=== PATIENT | male | born 1970 | race Caucasian/White ===

== ENCOUNTER 2020-02-11 00:38 | Inpatient (IN) | payer MEDICAID ==
[~2020-02-11] VITALS: Ht 172.7 cm; Wt 89.8 kg
[2020-02-11] MEDS ORDERED: DEXTROSE 50%-WATER 50 ML DISP.SYRIN IV PRN (01:00)
[2020-02-11] MEDS ORDERED: Z GUARD REMEDY 2 OZ OINT TP PRN (01:00)
--- NOTE | 2020-02-11 01:10 | NUR ---
Received via [facility] from [facility] with a wound to the left lateral foot. wound red/pink/black areas. Photo taken and placed i the chart. He denies pain. sensation to the foot present. elevated on a pillow. Fever 101.8 tyl given as ordered. Phone w/o professional services manager with patient. Patient is alert and orientated able to walk from [facility] to the bed
[2020-02-11 01:55] VITALS: BP 146/75
[2020-02-11 01:58] LABS: CALCIUM, SERUM 7.5 mg/dL (8.5-10.1); CREATININE 2.9 mg/dL (0.6-1.3); POTASSIUM 4.5 mmol/L (3.5-5.1)
[2020-02-11 02:08] LABS: BASOPHILS # (AUTO) 0.1 /CMM (0.0-0.2); BASOPHILS % (AUTO) 0.8 % (0.0-2.0); EOSINOPHILS % (AUTO) 0.1 % (0.0-6.0); HEMATOCRIT 24 % (39-51); HEMOGLOBIN 7.9 g/dL (13.5-17.5); LYMPHOCYTES # (AUTO) 1.4 /CMM (0.8-4.8); LYMPHOCYTES % (AUTO) 9.6 % (20.0-44.0); MEAN CORPUSCULAR HGB CONC 33 g/dl (31.0-36.0); MEAN CORPUSCULAR VOLUME 80 fL (80-96); MONOCYTES # (AUTO) 0.9 /CMM (0.1-1.30); MONOCYTES % (AUTO) 6.6 % (2.0-12.0); NEUTROPHILS # (AUTO) 11.8 /CMM (1.8-8.9); NEUTROPHILS % (AUTO) 82.9 % (43.0-81.0); PLATELET COUNT (AUTO) 208 /CMM (150-450); RED BLOOD CELL COUNT(AUTO) 2.97 MIL/uL (4.5-6.0); WHITE BLOOD COUNT (AUTO) 14.2 K/uL (4.3-11.0)
[2020-02-11] MEDS ORDERED: VANCOMYCIN 1.75 GM in IV D5W 500 ML IV ONE (02:30)
[2020-02-11] MEDS: IV NS 0.9% 1,000 ML IV PRN ×2 (02:37→18:22)
[2020-02-11] MEDS ORDERED: VANCOMYCIN 1 GM VIAL ONE (02:49)
[2020-02-11] MEDS ORDERED: ACETAMINOPHEN 325 MG TABLET ONE (02:50)
[2020-02-11] MEDS: ACETAMINOPHEN 325 MG TABLET PO PRN ×2 (03:03→17:20)
[2020-02-11] MEDS ORDERED: INSULIN REGULAR, HUMAN 100 UNIT/ML 3 ML VIAL ONE (03:07)
[2020-02-11] MEDS: BLOOD SUGAR DIAGNOSTIC 1 EACH STRIP VI SCH ×4 (05:46→21:36)
[2020-02-11] MEDS: INSULIN REGULAR, HUMAN 100 UNIT/ML 3 ML VIAL SQ PRN ×3 (06:00→17:22)
--- NOTE | 2020-02-11 06:16 | NUR ---
ENDING NOTES: MD HUNT TEXTED AND MADE AWARE THE BLOOD SUGAR 249 HE RETURNED WITH ORDER TO GIVE 15 UNITS REGULAR INSUL THIS AM 02/10 PATIENT DENIES PAIN LEFT FOOT Addendum: 02/11/20 at 0708 by YADIRA YBARRA RN ENDING NOTES: mD Hunt TEXTED AND MADE AWARE THE BLOOD SUGAR WAS 429 hE RETURNED WITH ORDERS TO GIVE 15 UNITS THIS 02/10 am ADMITTING FEVER 101.8 TYL GIVEN AND EFFECTIVE TEMP < TO 98.8 ORALLY. DOSE VANCO GIVEN ORDERED.
[2020-02-11] MEDS ORDERED: FEE PK DOSING 1 MIN EA MC ONE (07:12)
--- NOTE | 2020-02-11 07:43 | NUR ---
RN NOTES RECEIVED PATIENT IN BED RESTING COMFORTABLY IN MODERATE HIGH BACK REST, A/O X4, ABLE TO MAKE NEEDS KNOWN, ON RA, TOLERATING WELL, NO SIGNS OF DISTRESS NOTED AT THIS TIME, IV FLUIDS ON RAC #18, WITH NS RUNNING @75ML/HR, PATENT AND INTACT. SAFETY MEASURES IN PLACE, BED IN LOWEST LOCKED POSITION WITH SIDE RAILS UP X2, CALL LIGHT WITHIN REACH. WILL CONTINUE TO MONITOR.
[2020-02-11] MEDS ORDERED: CEPH500C2 PO (07:50)
[2020-02-11] MEDS ORDERED: METF-440 PO (07:51)
[2020-02-11 08:00] VITALS: BP 131/71
--- NOTE | 2020-02-11 10:12 | NUR ---
WOUND CARE CONSULT: PT PRESENTS WITH VERY SWOLLEN, DISCOLORED LEFT FOOT WITH PEELING SKIN. RECOMMEND DPM CONSULT. DR JAMESON NOTIFIED OF CONSULT REQUEST. PT IS CONTINENT AND INDEPENDENT WITH BED MOBILITY. WILL SEE PRN. CEJA IN AGREEMENT WITH PLAN OF CARE. Addendum: 02/11/20 at 1013 by JANAK LEY WNDNU Amended: Links added.
[2020-02-11 16:00] VITALS: BP 159/90
--- NOTE | 2020-02-11 18:36 | NUR ---
RN NOTES PATIENT IN BED RESTING COMFORTABLY IN MODERATE HIGH BACK REST, A/O X4, ABLE TO MAKE NEEDS KNOWN, ON RA, TOLERATING WELL, NO SIGNS OF DISTRESS NOTED THROUGHOUT THE SHIFT, IV FLUIDS ON RAC #18, WITH NS RUNNING @75ML/HR, PATENT AND INTACT. SAFETY MEASURES IN PLACE, BED IN LOWEST LOCKED POSITION WITH SIDE RAILS UP X2, CALL LIGHT WITHIN REACH. WILL ENDORSE TO PHARMACY ANALYST NURSE FOR TROY.
--- NOTE | 2020-02-11 19:50 | NUR ---
MS RN NOTE: PATIENT RESTING IN BED, NO ACUTE DISTRESS NOTED. BREATHING EVEN AND UNLABORED, NO SOB NOTED. NO S/S OF HYPER/HYPOGLYCEMIA NOTED. BED LOCKED AND IN LOWEST POSITION, CALL LIGHT IN REACH. WILL CONTINUE TO MONITOR.
[2020-02-11 20:31] VITALS: BP 129/66
[2020-02-11] MEDS: *INSULIN REGULAR(HUMULIN R)HUM 100 UNIT/ML VIAL SQ PRN (21:48)
--- NOTE | 2020-02-11 21:50 | NUR ---
MS RN NOTE: PATIENT BLOOD SUGAR LEVEL 235MG/DL, 4 UNITS OF INSULIN GIVEN PER SLIDING SCALE. NO S/S OF HYPERGLYCEMIA NOTED. WILL CONTINUE TO MONITOR.
[2020-02-11] MEDS ORDERED: VANCOMYCIN 1 GM in IV D5W 250 ML IV SCH (23:00)
[2020-02-12] MEDS: ACETAMINOPHEN 325 MG TABLET PO PRN (04:53)
--- NOTE | 2020-02-12 06:38 | NUR ---
MS RN NOTE: PATIENT RESTING IN BED, NO ACUTE DISTRESS NOTED. BREATHING EVEN AND UNLABORED, NO SOB NOTED. PATIENT BLOOD SUGAR LEVEL 108MG/DL, NO INSULIN NEEDED PER SLIDING SCALE. NO S/S OF HYPER/HYPOGLYCEMIA NOTED. DRESSING TO LEFT FOOT CLEAN AND DRY. BED LOCKED AND IN LOWEST POSITION, CALL LIGHT IN REACH. WILL ENDORSE TO DAY NURSE TO CONTINUE WITH PLAN OF CARE.
[2020-02-12] MEDS: BLOOD SUGAR DIAGNOSTIC 1 EACH STRIP VI SCH ×4 (06:43→21:50)
[2020-02-12 06:57] LABS: BASOPHILS % (AUTO) 0.2 % (0.0-2.0); EOSINOPHILS % (AUTO) 0.2 % (0.0-6.0); HEMATOCRIT 24 % (39-51); HEMOGLOBIN 8.2 g/dL (13.5-17.5); LYMPHOCYTES # (AUTO) 1.2 /CMM (0.8-4.8); LYMPHOCYTES % (AUTO) 9.5 % (20.0-44.0); MEAN CORPUSCULAR HGB CONC 34 g/dl (31.0-36.0); MEAN CORPUSCULAR VOLUME 79 fL (80-96); MONOCYTES # (AUTO) 0.9 /CMM (0.1-1.30); MONOCYTES % (AUTO) 7.4 % (2.0-12.0); NEUTROPHILS # (AUTO) 10.1 /CMM (1.8-8.9); NEUTROPHILS % (AUTO) 82.7 % (43.0-81.0); PLATELET COUNT (AUTO) 261 /CMM (150-450); WHITE BLOOD COUNT (AUTO) 12.2 K/uL (4.3-11.0)
[2020-02-12 07:03] LABS: ALBUMIN 1.7 g/dL (3.4-5.0); BILIRUBIN,TOTAL 0.3 mg/dL (0.2-1.0); MAGNESIUM 1.9 mg/dL (1.8-2.4); PHOSPHORUS 3.4 mg/dL (2.5-4.9); POTASSIUM 4.2 mmol/L (3.5-5.1)
[2020-02-12 07:06] LABS: THYROID STIMULATING HORMONE 2.277 uIU/mL (0.358-3.74); URIC ACID 7.6 mg/dL (2.6-7.2)
[2020-02-12 08:00] VITALS: BP 121/69
[2020-02-12] MEDS: MAGNESIUM HYDROXIDE 30 ML UDC PO PRN (11:08)
--- NOTE | 2020-02-12 11:09 | NUR ---
rn notes ADMINISTERED MILK OF MAGNESIA FOR CONSTIPATION PER PATIENT REQUEST.
[2020-02-12] MEDS: INSULIN REGULAR, HUMAN 100 UNIT/ML 3 ML VIAL SQ PRN (11:42)
--- NOTE | 2020-02-12 12:19 | NUR ---
RN NOTES WOUND MD Dr GARCIA WITH THE PATIENT AT THIS TIME, WOUND CULTURE TAKEN BY , CALLED LAB FOR METAL BUGGY OPERATOR.
[2020-02-12 13:42] LABS: CREATININE, URINE 188.7 MG/DL (30.0-125.0)
[2020-02-12] MEDS: HYDROCODONE/APAP 5/325MG 1 EACH TABLET PO PRN (14:16)
[2020-02-12] MEDS: ONDANSETRON HCL/PF 4 MG/2 ML VIAL IVP PRN (14:16)
--- NOTE | 2020-02-12 14:16 | NUR ---
RN NOTES ADMINISTERED ZOFRAN 4 MG/ML IV PUSH FOR NAUSEA, AND NARCO 5/325 MG PO PRN FOR LEFT FOOT PAIN 6/10 PER PATIENT REQUEST. V/S WNL, CONTINUED MONITORING.
[2020-02-12 15:03] LABS: APPEARANCE,URINE SL CLOUDY (CLEAR); BILIRUBIN,URINE NEGATIVE (NEGATIVE); BLOOD, URINE MODERATE Ery/uL (NEGATIVE); COLOR,URINE YELLOW (YELLOW); KETONES,URINE NEGATIVE (NEGATIVE); LEUKOCYTE ESTERASE ,URINE NEGATIVE (NEGATIVE); NITRITE, URINE NEGATIVE (NEGATIVE); PH,URINE 5.5 (5.0-8.0); PROTEIN,URINE 100 mg/dl (NEGATIVE); UGLUCOSE >=1000 mg/dL (NEGATIVE); UROBILINOGEN,URINE 0.2 EU/dL (0.2)
[2020-02-12 15:09] LABS: BACTERIA,URINE 1+ /HPF (None Seen); COARSE GRANULAR CASTS,URINE Few /LPF (None Seen); RBC,URINE 21-50 /HPF (0-2); SQUAMOUS EPITHELIAL CELL,UR 0-2 /HPF (None Seen); WBC,URINE 0-2 /HPF (0-3)
[2020-02-12 15:10] LABS: EOSINOPHIL,URINE None Seen
--- NOTE | 2020-02-12 18:00 | NUR ---
RN NOTES AS=837 MG/DL NO COVERAGE GIVEN BECAUSE PATIENT REFUSED TO EAT DINNER. V/S STABLE, MEDICATION WERE ADMINISTERED FOR PAIN, NAUSEA, AND CONSTIPATION EFFECTIVE. PATIENT RESTING IN THE BED. CALL LIGHT WITHIN TO REACH. ENDORSED ONCOMING NURSE FOLLOW PLAN OF CARE.
[2020-02-12 20:12] VITALS: BP 159/89
[2020-02-12] MEDS: *INSULIN REGULAR(HUMULIN R)HUM 100 UNIT/ML VIAL SQ PRN (22:04)
[2020-02-12] MEDS: VANCOMYCIN 1 GM in IV D5W 250 ML IV SCH (22:09)
[2020-02-13] MEDS: BLOOD SUGAR DIAGNOSTIC 1 EACH STRIP VI SCH ×4 (06:26→21:30)
[2020-02-13 06:27] LABS: BASOPHILS % (AUTO) 0.3 % (0.0-2.0); EOSINOPHILS % (AUTO) 0.3 % (0.0-6.0); HEMATOCRIT 25 % (39-51); HEMOGLOBIN 8.3 g/dL (13.5-17.5); LYMPHOCYTES # (AUTO) 1.4 /CMM (0.8-4.8); LYMPHOCYTES % (AUTO) 10.7 % (20.0-44.0); MEAN CORPUSCULAR HGB CONC 33 g/dl (31.0-36.0); MEAN CORPUSCULAR VOLUME 80 fL (80-96); MONOCYTES # (AUTO) 0.8 /CMM (0.1-1.30); MONOCYTES % (AUTO) 6.4 % (2.0-12.0); NEUTROPHILS # (AUTO) 10.8 /CMM (1.8-8.9); NEUTROPHILS % (AUTO) 82.3 % (43.0-81.0); PLATELET COUNT (AUTO) 302 /CMM (150-450); RED BLOOD CELL COUNT(AUTO) 3.12 MIL/uL (4.5-6.0); WHITE BLOOD COUNT (AUTO) 13.1 K/uL (4.3-11.0)
[2020-02-13] MEDS: INSULIN REGULAR, HUMAN 100 UNIT/ML 3 ML VIAL SQ PRN ×3 (06:28→17:46)
--- NOTE | 2020-02-13 06:40 | NUR ---
MS RN NOTES AWAKE & RESPONSIVE. NOT IN ANY DISTRESS. NO SOB NOTED. DENIES ANY PAIN OR DISCOMFORT AT THIS TIME. MONITORED ACCORDINGLY. CALL LIGHT WITHIN REACH. BED IN LOWEST POSITION. SR UP X 2 FOR SAFETY. WILL ENDORSE TO NEXT SHIFT.
[2020-02-13 06:55] LABS: CALCIUM, SERUM 8.3 mg/dL (8.5-10.1); CREATININE 3.1 mg/dL (0.6-1.3); POTASSIUM 4.6 mmol/L (3.5-5.1)
[2020-02-13 08:00] VITALS: BP 168/97
--- NOTE | 2020-02-13 08:00 | NUR ---
MS RN AM NOTE: PATIENT RESTING IN BED, NO ACUTE DISTRESS NOTED. BREATHING EVEN AND UNLABORED, NO SOB NOTED. NO S/S OF HYPER/HYPOGLYCEMIA NOTED. BED LOCKED AND IN LOWEST POSITION, CALL LIGHT WITHIN REACH. WILL CONTINUE TO MONITOR.
[2020-02-13] MEDS: MAG HYDROX/AL HYDROX/SIMETH 30 ML UDC PO PRN (11:29)
[2020-02-13 14:25] LABS: *SPE A/G RATIO 0.4 (0.7-1.7); *SPE ALBUMIN 1.8 g/dL (2.9-4.4); *SPE ALPHA-1-GLOBULIN 0.5 g/dL (0.0-0.4); *SPE ALPHA-2-GLOBULIN 1.2 g/dL (0.4-1.0); *SPE BETA GLOBULIN 1.2 g/dL (0.7-1.3); *SPE GLOBULIN, TOTAL 4.1 g/dL (2.2-3.9); *SPE M-SPIKE Not Observed g/dL (Not Observed); *SPEGAMMA GLOBULIN 1.2 g/dL (0.4-1.8)
[2020-02-13 16:00] VITALS: BP 148/81
--- NOTE | 2020-02-13 17:09 | NUR ---
SEEN BY DR GOSS AND SPOKE TO THE PT STATING THAT PT NEEDS TO HAVE SX BY MONDAY AND WILL DISCUSS WITH THE HOSPITALIST ABOUT IT.
[2020-02-13 20:17] VITALS: BP 139/70
[2020-02-13] MEDS: *INSULIN REGULAR(HUMULIN R)HUM 100 UNIT/ML VIAL SQ PRN (22:05)
[2020-02-13] MEDS: VANCOMYCIN 1 GM in IV D5W 250 ML IV SCH (22:11)
[2020-02-14] MEDS: ACETAMINOPHEN 325 MG TABLET PO PRN ×2 (00:23→10:15)
[2020-02-14] MEDS: MAG HYDROX/AL HYDROX/SIMETH 30 ML UDC PO PRN ×2 (00:46→11:04)
[2020-02-14] MEDS: ZOLPIDEM TARTRATE 5 MG TABLET PO PRN (00:50)
[2020-02-14 02:11] LABS: PTH, INTACT 51 pg/mL (15-65)
--- NOTE | 2020-02-14 06:00 | NUR ---
MS RN NOTES BS CHECKED 196. PT REFUSED TO HAVE 3 UNITS OF REGULAR INSULIN. EXPLAINED TO PT IMPORTANCE OF INSULIN IN HIS POC BUT PT STILL REFUSED. WILL CONTINUE TO MONITOR.
[2020-02-14] MEDS: BLOOD SUGAR DIAGNOSTIC 1 EACH STRIP VI SCH ×4 (06:43→22:01)
[2020-02-14 08:00] VITALS: BP_SYST 139; BP_SYST 149; BP_DIAS 64; BP_DIAS 88
--- NOTE | 2020-02-14 08:00 | NUR ---
MS RN OPENING NOTES Received Patient awake and resting in bed. A/O x 4, Irish speaking. VS stable with no acute distress. Breathing even and unlabored on room air with no respiratory distress. Denies pain. 18g PIV on LAC clean, intact, patent and flushing well with NS infusing at 75ml/hr. Safety precautions in place. Bed locked and set to lowest position with side rails x 2 up. All needs rendered at this time. Call light within reach. Will continue to monitor.
[2020-02-14 08:27] LABS: BASOPHILS % (AUTO) 0.5 % (0.0-2.0); EOSINOPHILS % (AUTO) 1.5 % (0.0-6.0); HEMATOCRIT 24 % (39-51); HEMOGLOBIN 7.8 g/dL (13.5-17.5); LYMPHOCYTES # (AUTO) 1.7 /CMM (0.8-4.8); LYMPHOCYTES % (AUTO) 17.8 % (20.0-44.0); MEAN CORPUSCULAR HGB CONC 33 g/dl (31.0-36.0); MEAN CORPUSCULAR VOLUME 81 fL (80-96); MONOCYTES # (AUTO) 0.8 /CMM (0.1-1.30); MONOCYTES % (AUTO) 8.1 % (2.0-12.0); NEUTROPHILS # (AUTO) 6.7 /CMM (1.8-8.9); NEUTROPHILS % (AUTO) 72.1 % (43.0-81.0); PLATELET COUNT (AUTO) 272 /CMM (150-450); RED BLOOD CELL COUNT(AUTO) 2.88 MIL/uL (4.5-6.0); WHITE BLOOD COUNT (AUTO) 9.3 K/uL (4.3-11.0)
[2020-02-14] MEDS: INSULIN REGULAR, HUMAN 100 UNIT/ML 3 ML VIAL SQ PRN (12:30)
[2020-02-14 12:39] LABS: ALBUMIN 1.5 g/dL (3.4-5.0); BILIRUBIN,TOTAL 0.2 mg/dL (0.2-1.0); CALCIUM, SERUM 8.1 mg/dL (8.5-10.1); CREATININE 2.8 mg/dL (0.6-1.3); MAGNESIUM 2.4 mg/dL (1.8-2.4); PHOSPHORUS 4.8 mg/dL (2.5-4.9); TOTAL PROTEIN, SERUM 6.8 g/dL (6.4-8.2)
[2020-02-14 16:00] VITALS: BP 147/88
--- NOTE | 2020-02-14 18:19 | NUR ---
MS RN CLOSING NOTES Patient awake and resting in bed. A/O x 4, Niuean speaking. VS stable with no acute distress. Breathing even and unlabored on room air with no respiratory distress. Denies pain. Patient AMA, awaiting order picker. Safety precautions in place. Bed locked and set to lowest position with side rails x 2 up. All needs rendered at this time. Call light within reach. Will endorse to oncoming shift.
[2020-02-14 19:30] VITALS: BP 155/99
[2020-02-14] MEDS: MAGNESIUM HYDROXIDE 30 ML UDC PO PRN (19:39)
--- NOTE | 2020-02-14 19:47 | NUR ---
MS RN NOTES PATIENT SITTING EDGE OF BED. ALERT AND ORIENTED X 4. BREATHING EVEN AND UNLABORED ON ROOM AIR. SHOWS NO SIGNS OF ACUTE RESPIRATORY DISTRESS, NO ACUTE PAIN. IV REMOVED, PT WILL BE LEAVING AMA AT 2029. SAFETY PRECAUTIONS IN PLACE. BED IN LOWEST POSITION, LOCKED, AND CALL LIGHT KEPT WITHIN REACH. WILL CONTINUE TO MONITOR.
[2020-02-14 20:12] VITALS: BP 155/99
--- NOTE | 2020-02-14 20:30 | NUR ---
MS RN NOTES PT NO LONGER LEAVING AMA. MADE AWARE. WILL CONTINUE TO MONITOR.
--- NOTE | 2020-02-14 22:00 | NUR ---
MS RN NOTES PATIENT REFUSED INSULIN. EDUCATED PT FOR REASON FOR MEDICATION. HE STATES THAT HE HASNT BEEN EATING MUCH. WILL CONTINUE TO MONITOR
[2020-02-14] MEDS: VANCOMYCIN 1 GM in IV D5W 250 ML IV SCH (23:19)
[2020-02-14] MEDS: IV NS 0.9% 1,000 ML IV PRN (23:26)
[2020-02-15] MEDS: BLOOD SUGAR DIAGNOSTIC 1 EACH STRIP VI SCH ×4 (06:33→21:31)
[2020-02-15] MEDS: INSULIN REGULAR, HUMAN 100 UNIT/ML 3 ML VIAL SQ PRN ×3 (06:34→16:59)
--- NOTE | 2020-02-15 06:40 | NUR ---
MS RN NOTES PATIENT IN BED. ALERT AND ORIENTED X 4. BREATHING EVEN AND UNLABORED ON ROOM AIR. SHOWS NO SIGNS OF ACUTE RESPIRATORY DISTRESS, NO ACUTE PAIN. IV 20G ON RAC 20G RUNNING NS AT 75ML/HR. SHOWS NO SIGNS OF INFILTRATION, NO REDNESS. ALL DUE MEDICATIONS GIVEN. SAFETY PRECAUTIONS IN PLACE. BED IN LOWEST POSITION, LOCKED, AND CALL LIGHT KEPT WITHIN REACH. WILL ENDORSE TO ONCOMING NURSE.
--- NOTE | 2020-02-15 07:35 | NUR ---
MS RN NOTES RECEIVED PT IN BED, AWAKE, A/OX4. PT TOLERATING RA, WITH NO ACUTE RESPIRATORY DISTRESS NOTED. PT DENIES ANY PAIN OR DISCOMFORT AT THIS TIME. PT DENIES ANY CONCERNS OR QUESTION WELL. IVF NS AT 75ML/HR TO RAC G20, INTACT AND OPERATIONAL. PT KEPT COMFORTABLE. CALL LIGHT KEPT WITHIN REACH. PT'S BED IN LOWEST, LOCKED POSITION WITH SR X3. WILL CONTINUE PLAN OF CARE.
[2020-02-15 08:00] VITALS: BP 151/84
[2020-02-15] MEDS: ACETAMINOPHEN 325 MG TABLET PO PRN (10:20)
[2020-02-15 10:23] LABS: BASOPHILS % (AUTO) 0.4 % (0.0-2.0); HEMATOCRIT 23 % (39-51); HEMOGLOBIN 7.5 g/dL (13.5-17.5); LYMPHOCYTES # (AUTO) 1.2 /CMM (0.8-4.8); LYMPHOCYTES % (AUTO) 14.1 % (20.0-44.0); MEAN CORPUSCULAR HGB CONC 33 g/dl (31.0-36.0); MEAN CORPUSCULAR VOLUME 81 fL (80-96); MONOCYTES # (AUTO) 0.6 /CMM (0.1-1.30); MONOCYTES % (AUTO) 7.5 % (2.0-12.0); NEUTROPHILS # (AUTO) 6.6 /CMM (1.8-8.9); PLATELET COUNT (AUTO) 327 /CMM (150-450); WHITE BLOOD COUNT (AUTO) 8.6 K/uL (4.3-11.0)
[2020-02-15 10:36] LABS: ALBUMIN 1.6 g/dL (3.4-5.0); BILIRUBIN,TOTAL 0.2 mg/dL (0.2-1.0); CALCIUM, SERUM 8.1 mg/dL (8.5-10.1); CREATININE 2.3 mg/dL (0.6-1.3); MAGNESIUM 2.5 mg/dL (1.8-2.4); PHOSPHORUS 4.7 mg/dL (2.5-4.9); POTASSIUM 4.7 mmol/L (3.5-5.1); TOTAL PROTEIN, SERUM 6.9 g/dL (6.4-8.2)
--- NOTE | 2020-02-15 14:30 | NUR ---
MS RN NOTES WOUND CARE PROVIDED. WILL CONTINUE TO MONITOR.
--- NOTE | 2020-02-15 18:39 | NUR ---
MS RN NOTES RECEIVED PT IN BED, AWAKE, A/OX4. PT TOLERATING RA, WITH NO ACUTE RESPIRATORY DISTRESS NOTED. PT DENIES ANY PAIN OR DISCOMFORT AT THIS TIME. IVF NS AT 75ML/HR TO RAC G20, INTACT AND OPERATIONAL. PT KEPT COMFORTABLE. ALL NEEDS AND CARE ATTENDED. CALL LIGHT KEPT WITHIN REACH. PT'S BED IN LOWEST, LOCKED POSITION WITH SR X3. WILL ENDORSE TO INCOMING NIGHT NURSE FOR TROY.
--- NOTE | 2020-02-15 19:32 | NUR ---
Received alert and orientated smiling. Made aware to call nurse if need to get OOB for safety reasons.
[2020-02-15 20:15] VITALS: BP 169/91
[2020-02-15 20:16] VITALS: BP 169/91
[2020-02-15] MEDS: *INSULIN REGULAR(HUMULIN R)HUM 100 UNIT/ML VIAL SQ PRN (21:35)
[2020-02-15] MEDS: ONDANSETRON HCL/PF 4 MG/2 ML VIAL IVP PRN (22:09)
[2020-02-15] MEDS: VANCOMYCIN 1 GM in IV D5W 250 ML IV SCH (22:28)
[2020-02-16] MEDS: HYDROCODONE/APAP 5/325MG 1 EACH TABLET PO PRN (03:38)
--- NOTE | 2020-02-16 05:24 | NUR ---
AN UNEVENTFUL NIGHT MEDICATED X1 WITH NORCO TAB 1 FOR LEFT FOOT PAIN AND IT WAS EFFECTIVE. REMAINS AFEBRIL. WHEN IN BED THE LEFT LEGS IS ELEVATED ON A PILLOW GAUZE WRAPPED DRESSING CDI PT IS COOPERATIVE AND IN GOOD SPIRITS
[2020-02-16] MEDS: BLOOD SUGAR DIAGNOSTIC 1 EACH STRIP VI SCH ×4 (06:38→22:15)
[2020-02-16] MEDS: INSULIN REGULAR, HUMAN 100 UNIT/ML 3 ML VIAL SQ PRN ×3 (06:41→16:40)
--- NOTE | 2020-02-16 07:36 | NUR ---
M/S RN OPENING NOTES RECEIVED PT ON BED A/OX4, RESPONSIVE TO ALL STIMULI. RESPIRATION EVEN AND NON LABORED WITH NO ACUTE RESPIRATORY DISTRESS, ON ROOM AIR TEMP. ABD SOFT AND NON DISTENDED WITH ACTIVE BOWEL SOUNDS, CONTINENT B&B, WITH BRP. SKIN WARM TO TOUCH AND DRY. DENIES PAIN AND DISCOMFORT. LEFT FOOT DRESSING INACT AND CLEAN, EXTREMITY OFFLOAD. IV SITE AT RIGHT AC #20 PATENT IN FLUSHING, SITE CLEAN WITH NO S/SX OF INFILTRATION, RUNNING NS @ 75 ML/HR. BED IN LOW LOCKED POSITION, SR X2 UP FOR SAFETY, NEAR IN NURSES STATION, CALL LIGHT WITHIN REACHED. WILL CONTINUE TO EVALUATE CARE.
[2020-02-16 08:00] VITALS: BP 126/69
[2020-02-16 08:13] LABS: BASOPHILS # (AUTO) 0.1 /CMM (0.0-0.2); BASOPHILS % (AUTO) 0.8 % (0.0-2.0); EOSINOPHILS % (AUTO) 1.4 % (0.0-6.0); HEMATOCRIT 22 % (39-51); HEMOGLOBIN 7.2 g/dL (13.5-17.5); LYMPHOCYTES # (AUTO) 1.4 /CMM (0.8-4.8); LYMPHOCYTES % (AUTO) 18.3 % (20.0-44.0); MEAN CORPUSCULAR HGB CONC 33 g/dl (31.0-36.0); MEAN CORPUSCULAR VOLUME 80 fL (80-96); MONOCYTES # (AUTO) 0.6 /CMM (0.1-1.30); NEUTROPHILS # (AUTO) 5.4 /CMM (1.8-8.9); NEUTROPHILS % (AUTO) 71.5 % (43.0-81.0); PLATELET COUNT (AUTO) 366 /CMM (150-450); WHITE BLOOD COUNT (AUTO) 7.5 K/uL (4.3-11.0)
--- NOTE | 2020-02-16 09:07 | NUR ---
M/S RN NOTES PT SEEN AND EVALUATED BY DR. VERDIN. NO NEW ORDER OBTAINED. WILL CONTINUE POC
[2020-02-16 09:26] LABS: ALBUMIN 1.5 g/dL (3.4-5.0); BILIRUBIN,TOTAL 0.1 mg/dL (0.2-1.0); CREATININE 2.3 mg/dL (0.6-1.3); MAGNESIUM 2.5 mg/dL (1.8-2.4); PHOSPHORUS 5.9 mg/dL (2.5-4.9); POTASSIUM 5.4 mmol/L (3.5-5.1); TOTAL PROTEIN, SERUM 6.4 g/dL (6.4-8.2)
[2020-02-16] MEDS: IV NS 0.9% 1,000 ML IV PRN (10:48)
[2020-02-16 16:00] VITALS: BP 141/82
--- NOTE | 2020-02-16 18:32 | NUR ---
M/S RN CLOSING NOTES PT A/O4. NOT IN ACUTE RESPIRATORY DISTRESS. ABD SOFT AND NON DISTENDED WITH ACTIVE BOWEL SOUNDS, NO BM, TODAY, STOOL OB PENDING. SKIN WARM TO TOUCH AND DRY. DENIES PAIN AND DISCOMFORT. LEFT FOOT DRESSING INTACT AND CLEAN, EXTREMITY OFFLOAD. IV SITE AT RIGHT AC #20 PATENT IN FLUSHING, SITE CLEAN WITH NO S/SX OF INFILTRATION, RUNNING NS @ 75 ML/HR. BED IN LOW LOCKED POSITION, SR X2 UP FOR SAFETY, NEAR IN NURSES STATION, CALL LIGHT WITHIN REACHED. ENDORSED PT CARE TO NEXT SHIFT.
[2020-02-16 20:00] VITALS: BP 142/84
--- NOTE | 2020-02-16 20:00 | NUR ---
MS/RN OPEN OPENING NOTES RECEIVED PATIENT IN BED, AWAKE,ALERT X3. ABLE TO VERBALIZE NEEDS. RESPIRATIONS EVEN AND UNLABORED, OBSERVE LEFT FOOT KNEE DRESSING INTACT AND DRY. PATIENT REPORTED NO PAIN, ASSISTED TO THE BATHROOM TO VOID, ON IV FLUIDS AT 75 ML/HR. RECEIVED ENDORSEMENT FROM AM RN FOR TROY. WILL MONITOR AND FOLLOW UP ON PLAN OF CARE PATIENT VERBALIZED THAT THERE IS A PLAN FOR AMPUTATION SUSIE AT 1 PM.
[2020-02-16] MEDS: VANCOMYCIN 1 GM in IV D5W 250 ML IV SCH (22:15)
[2020-02-16] MEDS: *INSULIN REGULAR(HUMULIN R)HUM 100 UNIT/ML VIAL SQ PRN (22:26)
[2020-02-16] MEDS: ZOLPIDEM TARTRATE 5 MG TABLET PO PRN (22:53)
--- NOTE | 2020-02-16 22:57 | NUR ---
MS/RN NOTES PATIENT UNABLE TO SLEEP REQUESTING FOR NEEDED MEDICATION AMBIEN WITH DOSE PRESCRIBE. PATIENT HAD A SNACK AND INSULIN GIVEN FOR COVERage, call made to family member per patient request and left message as patient wanted to hear from them.
[2020-02-17] VITALS (7 sets, daily range): BP systolic 119–168; BP diastolic 84–95
[2020-02-17] MEDS: BLOOD SUGAR DIAGNOSTIC 1 EACH STRIP VI SCH ×4 (06:19→22:01)
--- NOTE | 2020-02-17 06:48 | NUR ---
203-1 MS/RN NOTES PATIENT AWAKE, ALERT X3, ABLE TO VERBALIZE NEEDS, OBSERVED WITH SOME CONCERNS ON UPCOMING SURGERY. RESPIRATIONS EVEN AND UNLABORED, LEFT FOOD DRESSING CHANGED. ATTENDED TO ALL NEEDS, BED LOCKED, CALL LIGHTS WITHIN REACH. WILL ENDORSE TO AM RN FOR TROY.
[2020-02-17 07:13] LABS: BASOPHILS % (AUTO) 0.6 % (0.0-2.0); EOSINOPHILS % (AUTO) 1.6 % (0.0-6.0); HEMATOCRIT 23 % (39-51); HEMOGLOBIN 7.6 g/dL (13.5-17.5); LYMPHOCYTES # (AUTO) 1.3 /CMM (0.8-4.8); LYMPHOCYTES % (AUTO) 17.9 % (20.0-44.0); MEAN CORPUSCULAR HGB CONC 34 g/dl (31.0-36.0); MEAN CORPUSCULAR VOLUME 80 fL (80-96); MONOCYTES # (AUTO) 0.6 /CMM (0.1-1.30); MONOCYTES % (AUTO) 8.1 % (2.0-12.0); NEUTROPHILS # (AUTO) 5.2 /CMM (1.8-8.9); NEUTROPHILS % (AUTO) 71.8 % (43.0-81.0); PLATELET COUNT (AUTO) 424 /CMM (150-450); RED BLOOD CELL COUNT(AUTO) 2.82 MIL/uL (4.5-6.0); WHITE BLOOD COUNT (AUTO) 7.2 K/uL (4.3-11.0)
[2020-02-17 07:35] LABS: ALBUMIN 1.6 g/dL (3.4-5.0); BILIRUBIN,TOTAL 0.3 mg/dL (0.2-1.0); CALCIUM, SERUM 7.9 mg/dL (8.5-10.1); MAGNESIUM 2.4 mg/dL (1.8-2.4); POTASSIUM 4.9 mmol/L (3.5-5.1); TOTAL PROTEIN, SERUM 6.9 g/dL (6.4-8.2)
--- NOTE | 2020-02-17 08:00 | NUR ---
RN NOTES RECEIVED PATIENT IN THE BED , AWAKE, A/O X3, HAS NO ACUTE RESPIRATORY DISTRESS, PATIENT NPO FOR SURGERY.PATIENT REFUSED PAIN AT THIS TIME. IV ACCESS ON RIGHT AC AREA INTACT, INFUSING NS AT 75 ML/HR, CALL LIGHT WITHIN TO REACH, CONTINUED MONITORING.
--- NOTE | 2020-02-17 11:34 | NUR ---
rn notes patient stable, picking machine operator helper for surgery at this time.
[2020-02-17] MEDS ORDERED: FENTANYL PF 100MCG/2ML AMPUL ONE (11:54)
[2020-02-17] MEDS ORDERED: MIDAZOLAM HCL 2 MG/2ML VIAL ONE (11:54)
[2020-02-17] MEDS ORDERED: FAMOTIDINE/PF INJ 20 MG/2 ML VIAL IV ONE (11:54)
[2020-02-17] MEDS ORDERED: BUPIVACAINE 0.5 % PF 150 MG/30 ML VIAL ONE (12:00)
[2020-02-17] MEDS ORDERED: BACITRACIN 50000 UNITS/VIAL ONE (12:00)
--- NOTE | 2020-02-17 14:45 | NUR ---
RN NOTES PATIENT BACK FROM SURGERY AT THIS TIME STABLE, AWAKE. REFUSED PAIN, V/S TAKEN BP 149/87,T-98,P- 84, R-19, 02-95 ROOM AIR. PATIENT HAS DRESSING ON LEFT FOOT KEEP ELEVATED, AND DRESSING CLEAN, RESUME DIET, RESUME ALL ORDERS, PODIATRY TO CHANGE TOMORROW DRESSING. ORDERS TAKEN AND CARRIED OUT.
--- NOTE | 2020-02-17 17:15 | NUR ---
RN NOTES BS-129 MG/DL NO COVERAGE GIVEN, V/S WNL, PATIENT TOLERATED DINNER WELL, REFUSED PAIN AT THIS TIME. CONTINUED MONITORING.
--- NOTE | 2020-02-17 18:30 | NUR ---
rn notes patient resting in the bed , refused pain, tolerated dinner well. keep left foot elevated using pillows. patient using urinal, turn and reposition self in the bed, call light within to reach, endorsed oncoming nurse follow plan of care.
--- NOTE | 2020-02-17 19:52 | NUR ---
RN NOTES RECEIVED PATIENT AWAKE ALERT ORIENTED X4. SAFETY MEASURES IN PLACE, CALL LIGHT WITH IN EASY REACH. IV ACCESS INTACT AND PATENT. ALL NEEDS ANTICIPATED, WILL CONTINUE TO MONITOR ACCORDINGLY.
--- NOTE | 2020-02-17 20:50 | NUR ---
RN NOTES NORCO GIVEN FOR COMPLAINTS OF PAIN AND TEMP 100.2/ORALLY. COOLING MEASURES APPLIED. WILL CONTINUE TO MONITOR.
[2020-02-17] MEDS: HYDROCODONE/APAP 5/325MG 1 EACH TABLET PO PRN (21:09)
--- NOTE | 2020-02-17 22:00 | NUR ---
RN NOTES RE CHECKED TEMP 99.3/ORALLY, NO C/O PAIN AT THIS TIME.
[2020-02-17] MEDS: *INSULIN REGULAR(HUMULIN R)HUM 100 UNIT/ML VIAL SQ PRN (22:02)
--- NOTE | 2020-02-18 00:10 | NUR ---
RN NOTES TEMP 98.1 / ORALLY. DENIES ANY PAIN AT THIS TIME. WILL MONITOR.
[2020-02-18] MEDS: VANCOMYCIN 1 GM in IV D5W 250 ML IV SCH ×2 (01:05→22:54)
--- NOTE | 2020-02-18 06:58 | NUR ---
RN NOTES ALL NEEDS ATTENDED KEPT CLEAN WARM DRY AND COMFORTABLE, REFUSED AM LABS, REFUSED ACCUCHECK AT THIS TIME. SAFETY MEASURES IN PLACE, CALL LIGHT WITH IN EASY REACH. WILL ENDORSE TO AM NURSE FOR CONTINUITY OF CARE.
--- NOTE | 2020-02-18 07:25 | NUR ---
ms rn received on bed, awake,alert,oriented x4,not in any form of distress, respirations even and unlabored,no sob noted, lungs are clear,abdomen soft,positive bowel sounds,denies pain at this time.
[2020-02-18] MEDS: HYDROCODONE/APAP 5/325MG 1 EACH TABLET PO PRN (07:41)
[2020-02-18 08:00] VITALS: BP 132/78
[2020-02-18] MEDS: BLOOD SUGAR DIAGNOSTIC 1 EACH STRIP VI SCH ×4 (08:28→22:23)
[2020-02-18] MEDS: INSULIN REGULAR, HUMAN 100 UNIT/ML 3 ML VIAL SQ PRN ×2 (09:17→13:01)
--- NOTE | 2020-02-18 09:20 | NUR ---
ms gomez breakfast served,due meds given,tolerated well.
--- NOTE | 2020-02-18 09:50 | NUR ---
ms rn was seen by dr. roa,all needs attended.
[2020-02-18 16:00] VITALS: BP 133/66
--- NOTE | 2020-02-18 18:00 | NUR ---
MS LYON BS -153 - REFUSED COVERAGE.
[2020-02-18 19:50] LABS: CALCIUM, SERUM 7.9 mg/dL (8.5-10.1); CREATININE 2.4 mg/dL (0.6-1.3); POTASSIUM 5.2 mmol/L (3.5-5.1)
[2020-02-18 20:00] VITALS: BP 152/82
[2020-02-18 20:02] LABS: BASOPHILS % (AUTO) 0.6 % (0.0-2.0); EOSINOPHILS % (AUTO) 1.4 % (0.0-6.0); HEMATOCRIT 24 % (39-51); HEMOGLOBIN 7.7 g/dL (13.5-17.5); LYMPHOCYTES # (AUTO) 1.5 /CMM (0.8-4.8); LYMPHOCYTES % (AUTO) 20.4 % (20.0-44.0); MEAN CORPUSCULAR HGB CONC 33 g/dl (31.0-36.0); MEAN CORPUSCULAR VOLUME 81 fL (80-96); MONOCYTES # (AUTO) 0.6 /CMM (0.1-1.30); MONOCYTES % (AUTO) 8.2 % (2.0-12.0); NEUTROPHILS # (AUTO) 5.3 /CMM (1.8-8.9); NEUTROPHILS % (AUTO) 69.4 % (43.0-81.0); PLATELET COUNT (AUTO) 452 /CMM (150-450); WHITE BLOOD COUNT (AUTO) 7.6 K/uL (4.3-11.0)
--- NOTE | 2020-02-18 20:05 | NUR ---
Received in bed smiling and talking on his phone. In good spirits. left foot dressing CDI elevated on a pillow
[2020-02-18 20:45] VITALS: BP 156/82
[2020-02-18] MEDS: IV NS 0.9% 1,000 ML IV PRN (20:58)
[2020-02-18] MEDS: *INSULIN REGULAR(HUMULIN R)HUM 100 UNIT/ML VIAL SQ PRN (22:24)
[2020-02-19] MEDS: HYDROCODONE/APAP 5/325MG 1 EACH TABLET PO PRN (02:50)
--- NOTE | 2020-02-19 06:02 | NUR ---
ENDING NOTES: CONCERNED ABOUT BEING CONSTIPATED. MOM GIVEN ORDERED LAST NIGHT WITH H20. WILL PASS ON TO THE ON COMING SHIFT TO REQUISTE FROM THE MD SOMETHING TO MAKE HIM HAVE A STOOL. MEDICATED X1 WITH NORCE LAST NIGHT FOR HEADACHE AND EFFECTIVE
[2020-02-19] MEDS: BLOOD SUGAR DIAGNOSTIC 1 EACH STRIP VI SCH ×2 (06:37→11:26)
[2020-02-19] MEDS: *INSULIN REGULAR(HUMULIN R)HUM 100 UNIT/ML VIAL SQ PRN (06:42)
--- NOTE | 2020-02-19 07:25 | NUR ---
MS RN NOTES RECEIVED PT IN BED, ASLEEP, EASILY AROUSED, A/O X4. PT ON RA, WITH NO ACUTE RESPIRATORY DISTRESS NOTED. PT DENIES ANY PAIN OR DISCOMFORT AT THIS TIME. PT DENIES ANY CONCERNS OR QUESTION WELL. PIV TO LAC G20, FLUSHED WITH NS, INTACT AND OPERATIONAL.PT KEPT COMFORTABLE. CALL LIGHT KEPT WITHIN REACH. PT'S BED IN LOWEST, LOCKED POSITION WITH SR X3. WILL CONTINUE PLAN OF CARE.
[2020-02-19 08:00] VITALS: BP 152/93
[2020-02-19] MEDS: ACETAMINOPHEN 325 MG TABLET PO PRN (11:26)
[2020-02-19] MEDS: INSULIN REGULAR, HUMAN 100 UNIT/ML 3 ML VIAL SQ PRN (11:43)
[2020-02-19] MEDS ORDERED: CEPH500C2 PO (12:07)
[2020-02-19 12:38] LABS: CALCIUM, SERUM 7.9 mg/dL (8.5-10.1); CREATININE 2.2 mg/dL (0.6-1.3)
--- NOTE | 2020-02-19 14:45 | NUR ---
MS RN NOTES PT'S WOUND DRESSING TO LEFT FOOT TOE DONE BY THE MEDICAL TECHNICIAN ASSISTANT/BRITTANI JAMESON. PT TAUGHT HOW TO DRESS THE WOUND, SOME SUPPLIES PROVIDED WELL. PT ABLE TO TAKE VIDEO AND PICTURES WHILE DOING WOUND DRESSING CHANGE. ALSO, PT INSTRUCTED TO FOLLOW UP WITH WOUND CARE REGARDING STITCHES. WILL CONTINUE TO MONITOR.
[2020-02-19 16:00] VITALS: BP 155/77
--- NOTE | 2020-02-19 17:25 | NUR ---
MS MARKETING COMMUNICATIONS SPECIALIST NOTES RECEIVED PT AWAKE, A/O X4. PT ON RA, WITH NO ACUTE RESPIRATORY DISTRESS NOTED. PT DENIES ANY PAIN OR DISCOMFORT AT THE TIME OF DISCHARGE. PIV TO LAC G20, REMOVED AND APPLIED DRY DRESSING. PT REVIEWED AND SIGNED DISCHARGE INSTRUCTIONS AND INVENTORY LIST, ALL BELONGINGS WITH THE PT. PRESCRIPTION OF ANTIBIOTIC/KEFLEX AND METFORMIN SENT DIRECTLY TO HIS [facility], PT AWARE TO FLIGHT OPERATION COORDINATOR. INFORMATION ABOUT WOUND CARE FOLLOW UP WITH [facility] AND MD/PH GIVEN TO THE PT. PICTURE NOT TAKEN, PT PREFERS NOT TO OPEN THE WOUND DRESSING ANYMORE AND HE STATED HE HAS A VIDEO AND PICTURE ON HIS PHONE. RN EXPLAINED UNIT PROTOCOL, PT STATED OKAY WITH IT AND OKAY NOT TO TAKE PICTURE ANYMORE. ALL NEEDS AND CARE ATTENDED. PT ESCORTED TO THE LOBBY VIA WHEELCHAIR. PROVIDED WALKER WELL. VS STABLE. PT LEFT THE HOSPITAL AT 1645. HOSPITALIST/KR AWARE OF DISCHARGE.
== END 2020-02-19 16:45 | disposition home or self-care (01) | DRG 305 ==
LOC: TELE2 00:38 → TELE-TD 02:19 → MEDSG2 05:56
PROVIDERS: ADMIT Family Medicine; ATTEND Internal Medicine
PROC: 0JBR0ZZ Excision of Left Foot Subcutaneous Tissue and Fascia, Open Approach (ICD-10-PCS; principal; 2020-02-11)
PROC: 0Y6N0ZF Detachment at Left Foot, Partial 5th Ray, Open Approach (ICD-10-PCS; 2020-02-17)
DX: E11.621 Type 2 diabetes mellitus with foot ulcer (principal); N17.0 Acute kidney failure with tubular necrosis; E43 Unspecified severe protein-calorie malnutrition; E11.22 Type 2 diabetes mellitus with diabetic chronic kidney disease; E11.40 Type 2 diabetes mellitus with diabetic neuropathy, unspecified; E87.1 Hypo-osmolality and hyponatremia; M86.8X7 Other osteomyelitis, ankle and foot; E86.1 Hypovolemia; L97.529 Non-pressure chronic ulcer of other part of left foot with unspecified severity; D72.829 Elevated white blood cell count, unspecified; Z87.891 Personal history of nicotine dependence; N18.9 Chronic kidney disease, unspecified; E11.65 Type 2 diabetes mellitus with hyperglycemia; D63.8 Anemia in other chronic diseases classified elsewhere; E66.9 Obesity, unspecified; Z68.30 Body mass index [BMI] 30.0-30.9, adult; Z91.19 Patient's noncompliance with other medical treatment and regimen; L03.116 Cellulitis of left lower limb; E11.69 Type 2 diabetes mellitus with other specified complication
CPT/HCPCS: 36415; 73630-TC; 73718-TC; 76770-TC; 80048-TC; 80053-TC; 80076-TC; 80202-TC; 81000-TC; 82550-TC; 82570-TC; 82728-TC; 82962-TC; 83540-TC; 83735-TC; 83935-TC; 83970; 84100-TC; 84155; 84155-TC; 84165; 84300-TC; 84443-TC; 84550-TC; 85025-TC; 85610-TC; 85652-TC; 86140-TC; 86850-TC; 87070-TC; 87081-TC; 88302-TC; 88305-TC; 93970-TC; A4217; A6403; A6407; G0378; J1815; J2250; J2405; J3010; J3370; J3490; J7030; J7060

== ENCOUNTER 2020-02-28 09:10 | Emergency (ER) | payer MEDICAID ==
[~2020-02-28] VITALS: Ht 172.7 cm; Wt 81.6 kg
[~2020-02-28 09:10] MED LIST: CEPH500C2 PO; METF-440 PO
--- NOTE | 2020-02-28 10:16 | NUR ---
Patient came to Ed C/C wound check left foot noted dressing to left foot removed and check by Md portillo to apply new dressing to left foot Aubrey PATTERSON aware
[2020-02-28 10:45] VITALS: BP 139/71
== END 2020-02-28 10:45 | disposition home or self-care (01) ==
LOC: ER 09:15
DX: Z48.01 Encounter for change or removal of surgical wound dressing (principal); E11.9 Type 2 diabetes mellitus without complications; Z79.84 Long term (current) use of oral hypoglycemic drugs

== ENCOUNTER 2020-03-13 09:49 | Emergency (ER) | payer MEDICAID ==
[~2020-03-13] VITALS: Ht 172.7 cm; Wt 87.1 kg
--- NOTE | 2020-03-13 13:01 | NUR ---
steel pickler at bedside
[2020-03-13 13:57] VITALS: BP 132/61
== END 2020-03-13 13:58 | disposition home or self-care (01) ==
LOC: ER 09:49
DX: Z48.01 Encounter for change or removal of surgical wound dressing (principal); E11.9 Type 2 diabetes mellitus without complications; Z98.890 Other specified postprocedural states; Z79.84 Long term (current) use of oral hypoglycemic drugs
CPT/HCPCS: 99281; A6403

== ENCOUNTER 2020-03-16 10:32 | Outpatient (CLI) | payer MEDICAID | END 2020-03-16 23:59 | disposition home or self-care (01) | LOC: WOU 10:32 | PROVIDERS: ATTEND Podiatrist Foot & Ankle Surgery | DX: E11.621 Type 2 diabetes mellitus with foot ulcer (principal); L97.522 Non-pressure chronic ulcer of other part of left foot with fat layer exposed; E11.40 Type 2 diabetes mellitus with diabetic neuropathy, unspecified; Z89.422 Acquired absence of other left toe(s); Z79.84 Long term (current) use of oral hypoglycemic drugs; Z87.891 Personal history of nicotine dependence | CPT/HCPCS: 11042 ==

== ENCOUNTER 2024-10-11 03:21 | Emergency (ER) | payer MEDICAID, OTHER ==
[~2024-10-11] VITALS: Ht 172.7 cm; Wt 95.7 kg
[2024-10-11] MEDS ORDERED: hydrALAZINE HCL IV 20 MG VIAL ONE ×2 (03:46→04:52)
[2024-10-11] MEDS: hydrALAZINE HCL IV 20 MG VIAL IV ONE ×2 (03:52→05:00)
[2024-10-11 04:07] LABS: BASOPHILS % (AUTO) 0.6 % (0.0-2.0); EOSINOPHILS # (AUTO) 0.1 K/uL (0.0-0.7); EOSINOPHILS % (AUTO) 1.6 % (0.0-6.0); HEMATOCRIT 37 % (39-51); LYMPHOCYTES # (AUTO) 2.4 K/uL (0.8-4.8); LYMPHOCYTES % (AUTO) 29.6 % (20.0-44.0); MEAN CORPUSCULAR HEMOGLOBIN 26 PG (26.0-33.0); MEAN CORPUSCULAR HGB CONC 33 g/dl (31.0-36.0); MEAN CORPUSCULAR VOLUME 80 fL (80-96); MONOCYTES # (AUTO) 0.6 K/uL (0.1-1.30); MONOCYTES % (AUTO) 7.8 % (2.0-12.0); NEUTROPHILS # (AUTO) 4.9 K/uL (1.8-8.9); NEUTROPHILS % (AUTO) 60.4 % (43.0-81.0); PLATELET COUNT (AUTO) 216 K/uL (150-450); RED CELL DISTRIBUTION WIDTH 16.6 % (11.5-15.0); WHITE BLOOD COUNT (AUTO) 8.1 K/uL (4.3-11.0)
[2024-10-11] MEDS ORDERED: TNKASE WASTE DOCUMENTATION IV ONE (04:07)
[2024-10-11] MEDS ORDERED: TENECTEPLASE 50 MG KIT IV ONE (04:08)
[2024-10-11 04:16] LABS: CALCIUM, SERUM 8.6 mg/dL (8.5-10.1); CARBON DIOXIDE 30 mmol/L (21-32); CHLORIDE 103 mmol/L (98-107); GLUCOSE 215 mg/dL (74-106); POTASSIUM 4.7 mmol/L (3.5-5.1); SODIUM SERUM 141 mmol/L (136-145); UREA NITROGEN, BLOOD 57 mg/dL (7-18)
[2024-10-11 04:20] LABS: CREATININE 7.5 mg/dL (0.6-1.3)
[2024-10-11 04:28] LABS: BILIRUBIN,DIRECT 0.1 mg/dL (0.0-0.2); BILIRUBIN,TOTAL 0.3 mg/dL (0.2-1.0)
[2024-10-11 04:29] LABS: ALANINE AMINOTRANSFERASE 18 U/L (12-78); ALBUMIN 3.2 g/dL (3.4-5.0); ALKALINE PHOSPHATASE 92 U/L (46-116); ASPARTATE AMINOTRANSFERASE 11 U/L (15-37)
[2024-10-11 04:30] LABS: TOTAL PROTEIN, SERUM 7.4 g/dL (6.4-8.2)
[2024-10-11] MEDS ORDERED: IOHEXOL-350 100 ML VIAL IV ONE (05:32)
[2024-10-11] MEDS ORDERED: CT SWABBABLE VALVE TRANS SET 1 EA INFUS.SET MC ONE (05:33)
[2024-10-11] MEDS ORDERED: IV NS 0.9% 250 ML IV ONE (05:33)
[2024-10-11] MEDS ORDERED: LABETALOL 20 MG/4 ML VIAL ONE (05:40)
[2024-10-11] MEDS: LABETALOL 20 MG/4 ML VIAL IV ONE (05:43)
[2024-10-11] MEDS ORDERED: NICARDIPINE IN DEXTROSE,ISO-OS 200 ML IV ONE (05:44)
[2024-10-11] MEDS: NICARDIPINE HCL 40 MG in IV NS 0.9% 184 ML IV PRN (05:50)
[2024-10-11] MEDS: TENECTEPLASE 50 MG KIT IV ONE (05:59)
[2024-10-11 06:13] LABS: APPEARANCE,URINE CLEAR (CLEAR); BILIRUBIN,URINE NEGATIVE (NEGATIVE); BLOOD, URINE TRACE-INTA Ery/uL (NEGATIVE); COLOR,URINE YELLOW (YELLOW); KETONES,URINE NEGATIVE (NEGATIVE); LEUKOCYTE ESTERASE ,URINE NEGATIVE (NEGATIVE); NITRITE, URINE NEGATIVE (NEGATIVE); PH,URINE 7.5 (5.0-8.0); PROTEIN,URINE 3+ mg/dl (NEGATIVE); UGLUCOSE 2+ mg/dL (NEGATIVE); UROBILINOGEN,URINE 0.2 EU/dL (0.2)
[2024-10-11 06:22] LABS: ADD URINE CULTURE NO; BACTERIA,URINE Rare /HPF (None Seen); SQUAMOUS EPITHELIAL CELL,UR Few /HPF (None Seen); WBC,URINE 0-2 /HPF (0-3)
[2024-10-11] MEDS ORDERED: NICARDIPINE IN NACL, ISO-OSM 200 ML IV PRN (14:30)
[2024-10-11 15:00] VITALS: BP 178/81; TEMP 98; O2SAT 98
== END 2024-10-11 15:01 | disposition short-term general hospital (02) ==
LOC: ER 04:07
DX: I63.9 Cerebral infarction, unspecified (principal); I16.1 Hypertensive emergency; R47.81 Slurred speech; R53.1 Weakness; I12.0 Hypertensive chronic kidney disease with stage 5 chronic kidney disease or end stage renal disease; E11.22 Type 2 diabetes mellitus with diabetic chronic kidney disease; E11.649 Type 2 diabetes mellitus with hypoglycemia without coma; N18.6 End stage renal disease; Z79.899 Other long term (current) drug therapy; Z86.73 Personal history of transient ischemic attack (TIA), and cerebral infarction without residual deficits; Z99.2 Dependence on renal dialysis
CPT/HCPCS: 36415; 37195; 70450; 70496; 70498; 71045; 80048; 80076; 81001; 82962; 84484; 85025; 93005; 96365; 96375; 96376; 99291; J0360; J3101; J3490; J7050; Q9967